=== PATIENT | female | born 2000 | race Caucasian/White ===

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

== ENCOUNTER → 2021-10-22 09:24 | Outpatient (BNVA) | payer MEDICAID, SELFPAY | PROVIDERS: Visit Provider Nurse Practitioner | DX: F33.0 Major depressive disorder, recurrent, mild; F12.20 Cannabis dependence, uncomplicated; F41.1 Generalized anxiety disorder | CPT/HCPCS: 90792 ==

== ENCOUNTER 2022-02-08 08:52 | Inpatient (IN) | payer OTHER, SELFPAY ==
[2022-02-08 09:04] VITALS: BP 128/81; PULSE 91; RESP 16; TEMP 37.3; O2SAT 99; BMI 33.9
--- NOTE | 2022-02-08 09:32 | W.ED.PSYCHS ---
Documented by User: ALAN Morales 02/08/22 10:51 HPI - Psych General: Chief Complaint: Psychiatric Symptoms Stated Complaint: Psych Eval Time Seen by Provider: 02/08/22 08:58 History of Present Illness: Patient is a 21-year-old female comes to the ED with SI. She has a history of depression, anxiety disorder and cluster B personality disorder. She does not currently take any psych medications. She states she has a history of SI and has had 3 attempts in the past. Patient says she has been struggling with depression over the past several weeks and is having increased thoughts of suicide. She has got a plan to go out in the [place] and cut her wrist or jump in front of a semi truck. Endorses having trouble sleeping and feeling tired throughout the day. Denies any auditory/visual hallucinations or HI. Denies any drug or alcohol use. Associated symptoms: Reports depression and suicidal ideation; Deny auditory hallucinations, visual hallucinations or homicidal ideation Review of Systems Const: Denies: fever(s), chills or fatigue Eyes: Denies: change in vision or eye discomfort ENMT: Denies: throat pain, odynophagia, nasal discharge or nasal congestion Card: Denies: chest pain, palpitations, edema, swelling of feet/ankles, dyspnea on exertion or orthopnea Resp: Denies: dyspnea, productive cough or non-productive cough GI: Denies: abdominal pain, nausea, vomiting, diarrhea, constipation or hematochezia : Denies: flank pain, dysuria or hematuria Musc: Denies: neck pain, back pain or extremity swelling Skin/Breast: Denies: rash or new lesions Neuro: Denies: headache(s), numbness in extremities or weakness in extremities Psych: Reports: depression, sleeping less and suicidal ideation; Denies: visual hallucinations, auditory hallucinations or homicidal ideation PFS ED PFSH: Medical History Cannabis dependence, uncomplicated Generalized anxiety disorder Major depressive disorder, recurrent, mild No pertinent past medical history neghx: htn,dm,thyroid,dvt/pe Psychiatric care Surgical History Hx of tonsillectomy (06/2019) Family History Grandmother Heart disease Paternal Hypertension Maternal Family/Other Heart disease Paternal Great Grandmother Hypertension Maternal Aunt Ovarian cancer Maternal Aunt dx age unknown Stroke Paternal Great Grandmother Grandfather Hypercholesteremia Maternal Hypertension Maternal Denies family history of Colon cancer Diabetes Clotting disorder Breast cancer Bleeding disorder Uterine cancer Thyroid disease Female Reproductive History: Date of last menstrual period: 01/08/22 Physical Exam Const: COMMON NORMALS: patient oriented x3, healthy appearing and alert GENERAL APPEARANCE: cooperative HENMT: COMMON NORMALS: normocephalic HEAD & SCALP: normocephalic MOUTH: Normal oral and palatal mucosa present THROAT: posterior oropharynx normal and uvula midline Neck/C-Spine: COMMON NORMALS: supple GENERAL: Yes normal visual inspection Resp: COMMON NORMALS: normal respiratory effort, No retractions, No use of accessory muscles and clear to auscultation bilaterally AUSCULTATION: clear to auscultation bilaterally Cardio: COMMON NORMALS: regular rate, regular rhythm, S1 normal heart sound present, S2 normal heart sound present, No gallops present (Cardio), No clicks present (Cardio), No murmurs present (Cardio) and Peripheral pulses 2+ throughout RATE: regular rate RHYTHM: regular rhythm HEART SOUNDS: S1 normal heart sound present and S2 normal heart sound present PERIPHERAL PULSES: Peripheral pulses 2+ throughout GI: COMMON NORMALS: Normal to inspection, nondistended, normoactive bowel sounds present, Soft to palpation, non-tender and no masses PALPATION: Yes Soft to palpation : COMMON NORMALS: Yes no CVA tenderness BLADDER/KIDNEY EXAM: Yes no CVA tenderness Back/Pelvis: COMMON NORMALS: no CVA tenderness Extremity: COMMON NORMALS: normal to inspection Neuro: COMMON NORMALS: patient oriented x3 SENSORIUM/ORIENTATION: Yes alert GAIT: Yes Normal gait present Psych: COMMON NORMALS: mental status grossly normal, cooperative, normal affect, speech normal, activity/motor behavior normal, denies hallucinations and denies homicidal ideation SPEECH: Yes normal speech THOUGHT CONTENT: Yes Suicidality present, No Homicidality present and No Hallucination(s) present Skin: GENERAL SKIN EXAM: dry skin Course Consultations: Consultation #1: I contacted Dr. Aranda and told about patient case. He agreed to have patient admitted to the NPU. Time: 09:45 Vital Signs: Vital signs: Vital Signs Temperature 99.2 F 02/08/22 09:04 Pulse Rate 91 02/08/22 09:04 Respiratory Rate 16 02/08/22 09:04 Blood Pressure 128/81 02/08/22 09:04 Pulse Oximetry 99 02/08/22 09:04 MDM - Psych Medical Decision Making Patient is a 21-year-old female comes to the ED with SI. She endorses having a plan in place to either cut her wrist or jump in front of a semitruck. She is cooperative and wants to get help. I contacted Dr. Aranda and he agreed to have patient admitted to the NPU. All prescreening labs performed here in the ED. Chart reviewed and patient discussed with midlevel. Agree with assessment and plan. Patient seen and evaluated in person agree with assessment plan as above history and exam of as documented by Scottie my findings were in agreement. Orders written admit to NPU. Dr. Aranda is aware. Lab Data : 02/08/22 09:35 02/08/22 09:35 Laboratory Results WBC 8.7 10^3/uL (4.5-13.0) 02/08/22 09:35 RBC 4.94 10^6/uL (4.1-5.3) 02/08/22 09:35 Hgb 13.0 g/dL (11.5-15.3) 02/08/22 09:35 Hct 41.1 % (37.0-47.0) 02/08/22 09:35 MCV 83.2 fl (81-99) 02/08/22 09:35 MCH 26.3 pg (28.0-34.0) L 02/08/22 09:35 MCHC 31.6 g/dL (30.0-36.0) 02/08/22 09:35 RDW 14.0 % (12.1-15.1) 02/08/22 09:35 Plt Count 287 10^3/cmm (130-400) 02/08/22 09:35 MPV 10.6 fL (7.4-10.4) H 02/08/22 09:35 Neut % (Auto) 76.4 % 02/08/22 09:35 Lymph % (Auto) 17.8 % 02/08/22 09:35 [place] % (Auto) 4.6 % 02/08/22 09:35 Eos % (Auto) 0.8 % 02/08/22 09:35 Baso % (Auto) 0.1 % 02/08/22 09:35 Neut # (Auto) 6.65 10^3/uL (1.8-8.0) 02/08/22 09:35 Lymph # (Auto) 1.6 10^3/uL (1.5-6.5) 02/08/22 09:35 [place] # (Auto) 0.4 10^3/uL (0.2-0.9) 02/08/22 09:35 Eos # (Auto) 0.1 10^3/uL (0.0-0.8) 02/08/22 09:35 Baso # (Auto) 0.0 10^3/uL (0.0-0.1) 02/08/22 09:35 Nucleated RBC % (auto) 0 % 02/08/22 09:35 Nucleated RBCs # 0.0 /100WBC 02/08/22 09:35 Sodium 139 mmol/L (136-145) 02/08/22 09:35 Potassium 3.8 mmol/L (3.5-5.1) 02/08/22 09:35 Chloride 104 mmol/L (98-107) 02/08/22 09:35 Carbon Dioxide 22 mmol/L (22-29) 02/08/22 09:35 Anion Gap 16.8 (5-19) 02/08/22 09:35 BUN 9 mg/dL (6-20) 02/08/22 09:35 Creatinine 0.6 mg/dL (0.5-0.9) 02/08/22 09:35 GFR Calculation 127.5 mL/min (90-130) 02/08/22 09:35 Glucose 90 mg/dL (65-115) 02/08/22 09:35 Calculated Osmolality 286 mOsm/kg (285-295) 02/08/22 09:35 Calcium 9.2 mg/dL (8.5-10.5) 02/08/22 09:35 Total Bilirubin 0.2 mg/dL (0.15-1.2) 02/08/22 09:35 AST 11 U/L (0-32) 02/08/22 09:35 ALT 8 U/L (0-33) 02/08/22 09:35 Alkaline Phosphatase 89 U/L (35-105) 02/08/22 09:35 Total Protein 7.1 g/dL (6.6-8.7) 02/08/22 09:35 Albumin 3.6 g/dL (3.5-5.2) 02/08/22 09:35 Globulin 3.5 g/dL (1.3-4.6) 02/08/22 09:35 HCG, Qual Negative (Negative) 02/08/22 09:35 Salicylates < 0.3 mg/dL (3-10) L 02/08/22 09:35 Acetaminophen < 5.0 ug/mL (10-30) L 02/08/22 09:35 Ethyl Alcohol < 10 mg/dL (0-10) 02/08/22 09:35 Discharge Plan Discharge Patient Disposition: Admitted As Inpatient Clinical Impression: Suicidal ideation, Depression Condition: Stable Coding Level of Care Code ED Phlebotomy Technologist for Chg Fwd Exam Comprehensive Documented by User: Refugio Hahn DO 02/08/22 10:42 HPI - Psych General: Chief Complaint: Psychiatric Symptoms Stated Complaint: Psych Eval Time Seen by Provider: 02/08/22 08:58 PFSH ED PFSH: Medical History Cannabis dependence, uncomplicated Generalized anxiety disorder Major depressive disorder, recurrent, mild No pertinent past medical history neghx: htn,dm,thyroid,dvt/pe Psychiatric care Surgical History Hx of tonsillectomy (06/2019) Family History Grandmother Heart disease Paternal Hypertension Maternal Family/Other Heart disease Paternal Great Grandmother Hypertension Maternal Aunt Ovarian cancer Maternal Aunt dx age unknown Stroke Paternal Great Grandmother Grandfather Hypercholesteremia Maternal Hypertension Maternal Denies family history of Colon cancer Diabetes Clotting disorder Breast cancer Bleeding disorder Uterine cancer Thyroid disease Course Vital Signs: Vital signs: Vital Signs Temperature 99.2 F 02/08/22 09:04 Pulse Rate 91 02/08/22 09:04 Respiratory Rate 16 02/08/22 09:04 Blood Pressure 128/81 02/08/22 09:04 Pulse Oximetry 99 02/08/22 09:04 MDM - Psych Medical Decision Making Chart reviewed and patient discussed with midlevel. Agree with assessment and plan. Patient seen and evaluated in person agree with assessment plan as above history and exam of as documented by [place] my findings were in agreement. Orders written admit to [facility] you. Dr. Aranda is aware. Medical Records I reviewed the patient's medical records. Lab Data I reviewed the patient's lab results. : 02/08/22 09:35 02/08/22 09:35 Laboratory Results WBC 8.7 10^3/uL (4.5-13.0) 02/08/22 09:35 RBC 4.94 10^6/uL (4.1-5.3) 02/08/22 09:35 Hgb 13.0 g/dL (11.5-15.3) 02/08/22 09:35 Hct 41.1 % (37.0-47.0) 02/08/22 09:35 MCV 83.2 fl (81-99) 02/08/22 09:35 MCH 26.3 pg (28.0-34.0) L 02/08/22 09:35 MCHC 31.6 g/dL (30.0-36.0) 02/08/22 09:35 RDW 14.0 % (12.1-15.1) 02/08/22 09:35 Plt Count 287 10^3/cmm (130-400) 02/08/22 09:35 MPV 10.6 fL (7.4-10.4) H 02/08/22 09:35 Neut % (Auto) 76.4 % 02/08/22 09:35 Lymph % (Auto) 17.8 % 02/08/22 09:35 [place] % (Auto) 4.6 % 02/08/22 09:35 Eos % (Auto) 0.8 % 02/08/22 09:35 Baso % (Auto) 0.1 % 02/08/22 09:35 Neut # (Auto) 6.65 10^3/uL (1.8-8.0) 02/08/22 09:35 Lymph # (Auto) 1.6 10^3/uL (1.5-6.5) 02/08/22 09:35 [place] # (Auto) 0.4 10^3/uL (0.2-0.9) 02/08/22 09:35 Eos # (Auto) 0.1 10^3/uL (0.0-0.8) 02/08/22 09:35 Baso # (Auto) 0.0 10^3/uL (0.0-0.1) 02/08/22 09:35 Nucleated RBC % (auto) 0 % 02/08/22 09:35 Nucleated RBCs # 0.0 /100WBC 02/08/22 09:35 Sodium 139 mmol/L (136-145) 02/08/22 09:35 Potassium 3.8 mmol/L (3.5-5.1) 02/08/22 09:35 Chloride 104 mmol/L (98-107) 02/08/22 09:35 Carbon Dioxide 22 mmol/L (22-29) 02/08/22 09:35 Anion Gap 16.8 (5-19) 02/08/22 09:35 BUN 9 mg/dL (6-20) 02/08/22 09:35 Creatinine 0.6 mg/dL (0.5-0.9) 02/08/22 09:35 GFR Calculation 127.5 mL/min (90-130) 02/08/22 09:35 Glucose 90 mg/dL (65-115) 02/08/22 09:35 Calculated Osmolality 286 mOsm/kg (285-295) 02/08/22 09:35 Calcium 9.2 mg/dL (8.5-10.5) 02/08/22 09:35 Total Bilirubin 0.2 mg/dL (0.15-1.2) 02/08/22 09:35 AST 11 U/L (0-32) 02/08/22 09:35 ALT 8 U/L (0-33) 02/08/22 09:35 Alkaline Phosphatase 89 U/L (35-105) 02/08/22 09:35 Total Protein 7.1 g/dL (6.6-8.7) 02/08/22 09:35 Albumin 3.6 g/dL (3.5-5.2) 02/08/22 09:35 Globulin 3.5 g/dL (1.3-4.6) 02/08/22 09:35 HCG, Qual Negative (Negative) 02/08/22 09:35 Salicylates < 0.3 mg/dL (3-10) L 02/08/22 09:35 Acetaminophen < 5.0 ug/mL (10-30) L 02/08/22 09:35 Ethyl Alcohol < 10 mg/dL (0-10) 02/08/22 09:35 Discharge Plan Discharge Patient Disposition: Admitted As Inpatient Clinical Impression: Suicidal ideation, Depression Condition: Stable Coding Level of Care Code ED Phlebotomy Technologist for Ronald Fwd Exam Comprehensive
[2022-02-08 09:47] LABS: Basophils % 0.1 %; Eosinophils # 0.1 10^3/uL (0.0-0.8); Eosinophils % 0.8 %; Hematocrit 41.1 % (37.0-47.0); Lymphocytes # 1.6 10^3/uL (1.5-6.5); Lymphocytes % 17.8 %; Mean Corpuscular HGB Conc 31.6 g/dL (30.0-36.0); Mean Corpuscular Hemoglobin 26.3 pg (28.0-34.0); Mean Corpuscular Volume 83.2 fl (81-99); Mean Platelet Volume 10.6 fL (7.4-10.4); Monocytes # 0.4 10^3/uL (0.2-0.9); Monocytes % 4.6 %; Neutrophils # 6.65 10^3/uL (1.8-8.0); Neutrophils % 76.4 %; Nucleated Red Blood Cells % 0 %; Platelet Count 287 10^3/cmm (130-400); Red Blood Count 4.94 10^6/uL (4.1-5.3); White Blood Count 8.7 10^3/uL (4.5-13.0)
[2022-02-08 10:00] LABS: Alanine Aminotransferase 8 U/L (0-33); Albumin Level 3.6 g/dL (3.5-5.2); Alkaline Phosphatase 89 U/L (35-105); Anion Gap 16.8 (5-19); Aspartate Amino Transferase 11 U/L (0-32); Blood Urea Nitrogen 9 mg/dL (6-20); Calcium 9.2 mg/dL (8.5-10.5); Carbon Dioxide 22 mmol/L (22-29); Chloride 104 mmol/L (98-107); Globulin 3.5 g/dL (1.3-4.6); Glomerular Filtration Rate 127.5 mL/min (90-130); Glucose 90 mg/dL (65-115); Osmolality Calculated 286 mOsm/kg (285-295); Potassium 3.8 mmol/L (3.5-5.1); Sodium 139 mmol/L (136-145); Total Bilirubin 0.2 mg/dL (0.15-1.2); Total Protein 7.1 g/dL (6.6-8.7)
[2022-02-08 10:01] LABS: Acetaminophen < 5.0 ug/mL (10-30); Alcohol Level < 10 mg/dL (0-10); Salicylate < 0.3 mg/dL (3-10)
[2022-02-08 10:15] LABS: HCG, Serum Qual Negative (Negative)
[2022-02-08 10:53] LABS: Add Urine Microscopic? YES; Bilirubin Urine Neg (Negative); Blood Urine Neg (Negative); Glucose Urine UA Norm (Normal); Ketones Urine Negative (Negative); Leukocyte Esterase Urine 2+ (Negative); Nitrate Urine Negative (Negative); Protein Urine Neg (Negative); Specific Gravity, Urine 1.015 (1.005-1.030); Sulfosalicylic Acid Urine Negative (Negative); Urine Appearance Cloudy (CLEAR); Urine Color Yellow (Yellow); Urobilinogen Urine Norm (Negative); pH Urine 8 (5-7)
[2022-02-08 10:54] LABS: Add Urine Culture? No; Amorphous Sediment Urine 4+ /hpf; Bacteria Urine 4+ /hpf; RBC Urine 0-4 /hpf (0-2); Squamous Epithelial Cell Urine 15-25 /hpf (0-5); WBC Urine 15-25 /hpf (0-5)
[2022-02-08 10:57] LABS: Amphetamines Screen Urine Negative (Negative); Barbiturates Screen Urine Negative (Negative); Benzodiazepines Screen Urine Negative (Negative); Cocaine Screen Urine Negative (Negative); Opiate Screen Urine Negative (Negative); PCP Screen Urine Negative (Negative); THC Screen Urine Negative (Negative)
[2022-02-08 12:00] VITALS: BP 116/76; PULSE 88; O2SAT 99
[2022-02-08 12:47] VITALS: BP 111/77; PULSE 97; RESP 20; TEMP 36.8; O2SAT 100
[2022-02-08 13:25] VITALS: BMI 33.9
--- NOTE | 2022-02-08 13:53 | PC.ADMIT ---
[email or web address] Admission Note: The patient,Juliana Meredith,21 y/o, was given written information regarding hospital policies, unit procedures and contact persons. Patient's smoking status: . Vital Signs - 8 hr 02/08/22 09:04 02/08/22 12:00 02/08/22 12:47 Temperature 99.2 F 98.2 F Pulse Rate 91 88 97 Respiratory Rate 16 20 H Blood Pressure 128/81 116/76 111/77 Pulse Oximetry 99 99 100 Oxygen Delivery Method Room Air 02/08/22 12:49 Temperature Pulse Rate Respiratory Rate Blood Pressure Pulse Oximetry Oxygen Delivery Method Room Air ADMITTED FROM ER VIA WHEELCHAIR AND STAFF AT 1240. PT STATES SHE IS HERE DUE TO BEING MORE DEPRESSED AND SUICIDAL THOUGHTS. PT STATES SHE WAS DISCHARGE FROM THE [facility] DUE TO ANXIETY AND DEPRESSION AND JUST NEEDS SOME HELP. STATES SHE HAS BEEN TRYING TO GET HELP SINCE [facility] TELLING HER THERE IS A WAITING LIST AND WILL HAVE TO WAIT. PT STATES SHE COULD NO LONGER WAIT AND NEED HELP NOW. PT HAS NKDA AND STATES SHE ONLY TAKES CLARATIN/IBUPROFEN NEEDED. PT DENIES SI/HI AND AVH AT THIS TIME. PT DOES REPORT SHE HAS HAD THREE SUICIDE ATTEMPTS SINCE SHE WAS 19. SKIN ASSESSMENT UNREMARKABLE. ORIENTATED TO UNIT. ALL QUESTIONS ANSWERED AND SUPPORT WAS VOICED.,
[2022-02-08 14:00] VITALS: BP 134/87; PULSE 88; RESP 16; TEMP 36.9; O2SAT 98
[2022-02-08 21:06] VITALS: BP 134/94; PULSE 83; RESP 20; TEMP 36.8; O2SAT 100
[2022-02-09 06:00] VITALS: BP 108/75; PULSE 97; RESP 16; TEMP 37.1; O2SAT 100
--- NOTE | 2022-02-09 07:46 | PC.NURSE ---
shift assessment pt denies all during assessment, bright affect. states she really doesn't feel like she needs to be here, but just wants to be seen by a counselor at [facility]
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
[2022-02-09] MEDS: acetaminophen 325 mg Tablet 650 MG PO (12:22)
[2022-02-09 14:00] VITALS: BP 108/73; PULSE 85; RESP 18; TEMP 36.6; O2SAT 97
[2022-02-09] MEDS: trazodone 50 mg Tablet PO ×2 (20:31→21:52)
[2022-02-09 22:00] VITALS: BP 136/78; PULSE 76; RESP 16; TEMP 37; O2SAT 96
[2022-02-10 06:00] VITALS: BP 100/66; PULSE 78; RESP 16; TEMP 36.8; O2SAT 97
[2022-02-10] MEDS: loperamide 2 mg Capsule PO ×2 (11:24→13:40)
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
[2022-02-10 13:30] VITALS: BP 100/66; PULSE 78; RESP 16; TEMP 36.8; O2SAT 97
[2022-02-10 13:43] VITALS: BP 100/66; PULSE 78; RESP 16; TEMP 36.8; O2SAT 97
== END 2022-02-10 14:30 | disposition home or self-care (01) | DRG 885 ==
LOC: ER 10:39 → NP 17:38
PROVIDERS: Physician Assistant; Admitting Provider Psychiatry & Neurology Psychiatry; Emergency Provider Family Medicine; Visit Provider Psychiatry & Neurology Psychiatry
DX: F33.0 Major depressive disorder, recurrent, mild (principal); R45.851 Suicidal ideations; F12.20 Cannabis dependence, uncomplicated; F41.1 Generalized anxiety disorder; F60.9 Personality disorder, unspecified; Z62.810 Personal history of physical and sexual abuse in childhood; Z62.811 Personal history of psychological abuse in childhood; Z81.8 Family history of other mental and behavioral disorders; Z81.4 Family history of other substance abuse and dependence; Z91.51 Personal history of suicidal behavior
CPT/HCPCS: 36415; 80053; 80306; 80307; 81001; 84703; 85025; 97150; 97165; 99285

== ENCOUNTER → 2022-07-06 11:00 | Outpatient (BNVA) | payer MEDICAID, SELFPAY | PROVIDERS: Visit Provider Nurse Practitioner Women's Health | DX: Z12.4 Encounter for screening for malignant neoplasm of cervix (principal); N92.1 Excessive and frequent menstruation with irregular cycle; Z97.5 Presence of (intrauterine) contraceptive device; R35.0 Frequency of micturition; Z01.419 Encounter for gynecological examination (general) (routine) without abnormal findings; Z30.46 Encounter for surveillance of implantable subdermal contraceptive | CPT/HCPCS: 81000; 87086; 88175 ==

== ENCOUNTER 2022-08-26 00:39 | Emergency (ER) | payer MEDICAID, SELFPAY ==
[2022-08-26 00:54] VITALS: BP 122/85; PULSE 69; RESP 16; TEMP 36.6; O2SAT 98; BMI 34.8
--- NOTE | 2022-08-26 02:04 | XRR_ITS ---
PROCEDURE INFORMATION: Exam: XR Abdomen Exam date and time: 08/26/2022 2:11 AM Age: 22 years old Clinical indication: Abdominal pain; Patient HX: C/O lower abd pain with constipation TECHNIQUE: Imaging protocol: Radiologic exam of the abdomen. Views: Frontal supine view of the abdomen. 1 View. COMPARISON: CR XR thoracic spine 2V [id number] 10/30/2019 1:58 PM FINDINGS: Gastrointestinal tract: Normal. No bowel dilation. Bones/joints: Unremarkable. XR/XR KUB [id number] IMPRESSION: No acute findings.
--- NOTE | 2022-08-26 02:35 | W.ED.ABDPA2 ---
HPI - Abdominal Pain General: Chief Complaint: Abdominal Pain Stated Complaint: ABD Time Seen by Provider: 08/26/22 00:54 History of Present Illness: 22-year-old female in for abdominal pain. She reports that approximately 1:00 in the afternoon before eating she started having upper abdominal pain. She reports that it was very sharp pain. She reports that it has persisted for approximately 12 hours when she decided to come into the ER. She reports that actually while she was in the waiting room the pain significantly improved on its own. She reports very little pain at this point. She denies any abdominal surgery. She denies any fever, chills, nausea, vomiting. She does report that her last stool was this morning but it was pretty hard. And then since then her grandfather gave her a stool softener of some kind and she has had a couple of softer stools. She denies any possibility of stating that she has the Implanon in. Associated Symptoms: Reports constipation; Denies chills, dysuria, fever(s), nausea, syncope and vomiting Review of Systems Const: Denies: fever(s), chills or body aches Card: Denies: chest pain, palpitations, irregular heart rhythm, lightheadedness or syncope Resp: Denies: dyspnea, productive cough or non-productive cough GI: Reports: abdominal pain and constipation; Denies: nausea or vomiting : Denies: flank pain, difficulty voiding, dysuria, urinary frequency, urinary urgency or urinary hesitancy Musc: Denies: neck pain or back pain Neuro: Denies: headache(s), numbness in extremities or weakness in extremities PFSH ED PFSH: Medical History Cannabis dependence, uncomplicated Generalized anxiety disorder Major depressive disorder, recurrent, mild No pertinent past medical history neghx: htn,dm,thyroid,dvt/pe Psychiatric care managed by [facility] Surgical History Hx of tonsillectomy (06/2019) Family History Grandmother Heart disease Paternal Hypertension Maternal Family/Other Heart disease Paternal Great Grandmother Hypertension Maternal Aunt Ovarian cancer Maternal Aunt dx age unknown Stroke Paternal Great Grandmother Grandfather Hypercholesteremia Maternal Hypertension Maternal Denies family history of Colon cancer Diabetes Clotting disorder Breast cancer Bleeding disorder Uterine cancer Thyroid disease Physical Exam Const: COMMON NORMALS: no acute distress, patient oriented x3 and alert OTHER: Patient is sitting in the room laughing with male that accompanies her. Patient is drinking Mountain Dew and eating [place] Neck/C-Spine: COMMON NORMALS: no JVD Resp: COMMON NORMALS: normal respiratory effort, No use of accessory muscles and clear to auscultation bilaterally AUSCULTATION: clear to auscultation bilaterally Cardio: COMMON NORMALS: no JVD, regular rate, S1 normal heart sound present and S2 normal heart sound present RATE: regular rate HEART SOUNDS: S1 normal heart sound present and S2 normal heart sound present GI: COMMON NORMALS: Normal to inspection, nondistended, normoactive bowel sounds present and Soft to palpation PALPATION: Yes Soft to palpation, Yes Tenderness to palpation present (GI) Details: LLQ and RLQ, No Guarding due to palpation present (GI) and No Rigid due to palpation OTHER: Patient reports mild tenderness with palpation of lower abdomen. She reports initial pain was in the upper abdomen and now it feels like in the lower abdomen but worse on the left side. No guarding or rebound tenderness appreciated Neuro: COMMON NORMALS: patient oriented x3 SENSORIUM/ORIENTATION: Yes alert Course Vital Signs: Vital signs: Vital Signs Temperature 97.8 F 08/26/22 00:54 Pulse Rate 69 08/26/22 00:54 Respiratory Rate 16 08/26/22 00:54 Blood Pressure 122/85 08/26/22 00:54 Pulse Oximetry 98 08/26/22 00:54 Oxygen Delivery Me thod 08/26/22 00:54 MDM - Abdominal Pain Medical Decision Making 22-year-old female in for abdominal pain that started today. She reports some constipation and hard stool this morning with softer stools throughout the day. She denies any fever or chills. Patient is in no acute distress she is eating and drinking at the bedside. X-ray KUB wet read shows mild constipation. Radiologist read is not yet available. I have very low suspicion for acute intra-abdominal etiology or obstruction given patient's benign physical exam findings. I discussed constipation and conservative care at home with the patient. She is laughing and smiling and states that she will take MiraLAX at home. She asked if she is free to go home at this point. She is agreeable with discharge instructions. Patient is discharged home in stable condition with male to accompany her. Follow-up with primary care provider as needed. Return to the ER for new or worsening symptoms Discharge Plan Discharge Patient Disposition: Home Clinical Impression: Constipation Condition: Stable Prescriptions: No Action Nexplanon 68 mg implant See Rx Instructions .ROUTE .COMPLEX Rx Instructions: subdermally as directed fluticasone propionate [Flonase Allergy Relief] 50 mcg/actuation spray,suspension 1 - 2 spray intranasal BID PRN (Reason: Allergy Symptoms) Rx Instructions: administer into each nostril sertraline 25 mg tablet 25 mg PO DAILY estradiol 0.5 mg tablet 0.5 mg PO DAILY PRN (Reason: unknown) Qty: 90 3RF ibuprofen 800 mg tablet 800 mg PO Q8H PRN (Reason: Pain) Discharge Orders: Discharge ED (Routine); Ordered 08/26/22 Ordered By: Gerri Voss Referrals: Joanne Angelo FNP [Primary Care Provider] - Discharge Activity: Resume usual activity Patient Instructions: Constipation (ED) Activity Restrictions/Additional Instructions: I recommend MiraLAX [id number]. Increase your fiber and water intake. Decrease caffeine intake. Make sure that you are walking and staying active to help move the stool through the bowel. I would expect that you have a large stool output in the next 24 to 48 hours with those changes. If you have not follow-up with your primary care provider. You can return to the ER as needed for new or worsening symptoms or should you develop fever. Coding Level of Care Code ED Chief Engineer [employer] for [facility]
== END 2022-08-26 02:45 | disposition home or self-care (01) ==
PROVIDERS: Emergency Provider Nurse Practitioner Family; PCP Registered Nurse
DX: K59.00 Constipation, unspecified (principal)
CPT/HCPCS: 74018; 99283

== ENCOUNTER 2023-02-26 20:54 | Emergency (ER) | payer MEDICAID, SELFPAY ==
[2023-02-26 20:56] VITALS: BP 121/96; PULSE 79; RESP 20; TEMP 37.1; O2SAT 99; BMI 33.9
[2023-02-26 21:00] VITALS: BP 121/96; PULSE 82; O2SAT 99
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
== END 2023-02-26 21:58 | disposition home or self-care (01) ==
PROVIDERS: Emergency Provider Emergency Medicine; PCP Registered Nurse
DX: F43.25 Adjustment disorder with mixed disturbance of emotions and conduct (principal)
CPT/HCPCS: 99283

== ENCOUNTER 2025-03-06 15:51 | Observation (INO) | payer OTHER, MEDICAID, SELFPAY ==
[2025-03-06] VITALS (11 sets, daily range): BP systolic 102–113; BP diastolic 60–83; PULSE 67–89; RESP 16–20; TEMP 36.4–36.5; O2SAT 100; BMI 29.0
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
[2025-03-06 16:33] LABS: Hematocrit 33.4 % (36-47); Hemoglobin 11.10 g/dL (11.27-16.99); Mean Corpuscular HGB Conc 33.2 g/dL (30-55); Mean Corpuscular Hemoglobin 29.7 pg (27-33); Mean Corpuscular Volume 89.3 fl (85-98); Nucleated Red Blood Cells % 0 %; Platelet Count 197 10^3/cmm (157-399); Red Blood Count 3.74 10^6/uL (3.85-5.65); White Blood Count 13.93 10^3/uL (3.29-11.43)
[2025-03-06 16:51] LABS: Glucose Urine UA Negative (Normal); Nitrate Urine Negative (Negative); Specific Gravity, Urine 1.017 (1.005-1.030)
[2025-03-06 16:51] LABS: Lactic Sepsis W/Reflex 0.9 mmol/L (0.5-2.2)
[2025-03-06 16:52] LABS: Alanine Aminotransferase 27 U/L (0-33); Albumin Level 3.4 g/dL (3.5-5.2); Alkaline Phosphatase 98 U/L (35-105); Anion Gap 15.0 (5-19); Aspartate Amino Transferase 29 U/L (0-32); Blood Urea Nitrogen 7 mg/dL (6-20); Calcium 8.6 mg/dL (8.5-10.5); Carbon Dioxide 22 mmol/L (22-29); Chloride 103 mmol/L (98-107); Creatinine Clr Calc Pharmacy 188.5097; Globulin 2.7 g/dL (1.3-4.6); Glucose 82 mg/dL (65-115); Osmolality Calculated 279 mOsm/kg (285-295); Potassium 4.0 mmol/L (3.5-5.1); Sodium 136 mmol/L (136-145); Total Protein 6.1 g/dL (6.6-8.7)
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
== END 2025-03-06 19:30 | disposition home or self-care (01) ==
LOC: ER 16:29 → OBGYN 16:30
PROVIDERS: Admitting Provider Family Medicine; Emergency Provider Emergency Medicine; PCP Registered Nurse; Visit Provider Family Medicine
DX: O35.8XX0 Maternal care for other (suspected) fetal abnormality and damage, not applicable or unspecified (principal); Z3A.30 30 weeks gestation of pregnancy; V43.62XA Car passenger injured in collision with other type car in traffic accident, initial encounter; F33.8 Other recurrent depressive disorders
CPT/HCPCS: 59025; 76815; 80053; 81001; 83605; 85025; 99211; 99285; G0378